=== PATIENT | female | born 1960 | race Caucasian/White ===

== ENCOUNTER 2021-07-01 17:29 | Inpatient (IN) | payer OTHER ==
[~2021-07-01] VITALS: Ht 165.1 cm; Wt 85.6 kg
[2021-07-01 18:53] LABS: BASOPHIL 1.1 % (0-2); EOSINOPHIL 0.1 % (0-5); HCT 52.7 % (37.0-47.0); HGB 17.6 g/dl (12.5-16.0); MCH 32.3 pg (25.0-31.0); MCHC 33.4 g/dL (32.0-36.0); MCV 96.7 fL (78.0-100.0); MONOCYTE 6.5 % (0-12); MPV 8.7 fL (6.0-9.5); NEUTROPHIL 67.9 % (41-80); NRBC 0; PLT 208 K/uL (150-400); RBC 5.45 M/uL (4.20-5.40); RDW 12.8 % (11.5-14.0); WBC 10.6 K/uL (4.0-10.5)
[2021-07-01 18:55] LABS: BILIRUBIN 1+ mg/dL (NEGATIVE); BLOOD 1+ Ery/uL (NEGATIVE); CLARITY CLEAR (CLEAR); COLOR YELLOW (YELLOW); GLUCOSE (U) 2+ mg/dL (NORMAL); LEUKOCYTES NEGATIVE Leu/uL (NEGATIVE); NITRITE NEGATIVE (NEGATIVE); PROTEIN 1+ mg/dL (NEGATIVE); SPECIFIC GRAVITY >=1.030 (1.001-1.030); UROBILINOGEN 0.2 mg/dL (0.2-1.0); pH 5.5 (5.0-9.0)
[2021-07-01 19:09] LABS: BACTERIA TRACE; YEAST PRESENT
[2021-07-01 19:10] LABS: AMORPHOUS URATES CRYSTALS TRACE; MUCOUS TRACE
[2021-07-01 19:17] LABS: ALBUMIN 4.1 g/dL (3.4-5.0); BILIRUBIN - TOTAL 0.5 mg/dL (0.2-1.0); BUN/CREAT RATIO (CALC) 23.5 RATIO; CREATININE 0.51 mg/dL (0.51-0.95); GLOBULIN (CALCULATION) 4.1 g/dL; MAGNESIUM 2.2 mg/dL (1.8-2.4); TOTAL PROTEIN 8.2 g/dL (6.4-8.2)
[2021-07-01 19:18] LABS: PRO-BNP 36 pg/mL (<125)
[2021-07-01 19:33] LABS: LACTIC ACID 2.5 mmol/L (0.4-1.9)
[2021-07-01 21:55] LABS: FT4 (FREE T4) 0.9 ng/dL (0.76-1.46)
[2021-07-02 02:46] LABS: BUN 15 mg/dL (7-18); CHLORIDE 106 mmol/L (98-107); GLUCOSE 383 mg/dL (74-106); POTASSIUM 3.7 mmol/L (3.5-5.1)
[2021-07-02 03:03] LABS: CO2 (BICARBONATE) < 5 mmol/L (21-32)
[2021-07-02 06:48] LABS: BASOPHIL 0.1 % (0-2); EOSINOPHIL 0 % (0-5); HCT 50.6 % (37.0-47.0); HGB 16.6 g/dl (12.5-16.0); LYMPHOCYTE 11.9 % (15-48); MCH 32.4 pg (25.0-31.0); MCHC 32.8 g/dL (32.0-36.0); MCV 98.6 fL (78.0-100.0); MONOCYTE 9.3 % (0-12); MPV 8.7 fL (6.0-9.5); NEUTROPHIL 74.3 % (41-80); NRBC 0; PLT 193 K/uL (150-400); RBC 5.13 M/uL (4.20-5.40); RDW 12.8 % (11.5-14.0); WBC 15.3 K/uL (4.0-10.5)
[2021-07-02 07:08] LABS: ALBUMIN 3.3 g/dL (3.4-5.0); BILIRUBIN - TOTAL 0.4 mg/dL (0.2-1.0); BUN/CREAT RATIO (CALC) 34.9 RATIO; CREATININE 0.43 mg/dL (0.51-0.95); GLOBULIN (CALCULATION) 4.8 g/dL; POTASSIUM 3.6 mmol/L (3.5-5.1); TOTAL PROTEIN 8.1 g/dL (6.4-8.2)
[2021-07-02 11:14] LABS: BUN/CREAT RATIO (CALC) 46.7 RATIO; CREATININE 0.15 mg/dL (0.51-0.95); POTASSIUM 3.9 mmol/L (3.5-5.1)
[2021-07-02 17:43] LABS: BUN/CREAT RATIO (CALC) 32.4 RATIO; CREATININE 0.34 mg/dL (0.51-0.95); POTASSIUM 2.9 mmol/L (3.5-5.1)
[2021-07-02 22:29] LABS: BUN/CREAT RATIO (CALC) 28.1 RATIO; CREATININE 0.32 mg/dL (0.51-0.95); POTASSIUM 3.7 mmol/L (3.5-5.1)
[2021-07-03 04:20] LABS: BASOPHIL 0.2 % (0-2); EOSINOPHIL 0.3 % (0-5); HCT 32.8 % (37.0-47.0); HGB 11.7 g/dl (12.5-16.0); LYMPHOCYTE 24.9 % (15-48); MCH 32.7 pg (25.0-31.0); MCHC 35.7 g/dL (32.0-36.0); MONOCYTE 7.2 % (0-12); MPV 8.6 fL (6.0-9.5); NEUTROPHIL 66.6 % (41-80); NRBC 0; PLT 125 K/uL (150-400); RBC 3.58 M/uL (4.20-5.40); RDW 12.8 % (11.5-14.0); WBC 6.4 K/uL (4.0-10.5)
[2021-07-03 04:21] LABS: MCV 91.6 fL (78.0-100.0)
[2021-07-03 04:39] LABS: BUN/CREAT RATIO (CALC) 22.6 RATIO; CREATININE 0.31 mg/dL (0.51-0.95); POTASSIUM 3.2 mmol/L (3.5-5.1)
[2021-07-03 10:59] LABS: BUN/CREAT RATIO (CALC) 17.2 RATIO; CREATININE 0.29 mg/dL (0.51-0.95); POTASSIUM 3.2 mmol/L (3.5-5.1)
[2021-07-03 19:57] LABS: CREATININE 0.29 mg/dL (0.51-0.95); POTASSIUM 3.2 mmol/L (3.5-5.1)
[2021-07-04 06:30] LABS: BUN/CREAT RATIO (CALC) 9.4 RATIO; CREATININE 0.32 mg/dL (0.51-0.95); POTASSIUM 3.8 mmol/L (3.5-5.1)
[2021-07-04 16:47] LABS: BUN/CREAT RATIO (CALC) 7.9 RATIO; CREATININE 0.38 mg/dL (0.51-0.95); POTASSIUM 4.2 mmol/L (3.5-5.1)
[2021-07-04 18:08] LABS: CHLAMYDIA TRACHOMATIS, NAA Negative (Negative); NEISSERIA GONORRHOEAE, NAA Negative (Negative)
[2021-07-05 04:26] LABS: BASOPHIL 0.8 % (0-2); EOSINOPHIL 2.4 % (0-5); HCT 36.9 % (37.0-47.0); HGB 12.8 g/dl (12.5-16.0); LYMPHOCYTE 41.5 % (15-48); MCH 32.5 pg (25.0-31.0); MCHC 34.7 g/dL (32.0-36.0); MCV 93.7 fL (78.0-100.0); MPV 8.9 fL (6.0-9.5); NEUTROPHIL 44.4 % (41-80); NRBC 0; PLT 160 K/uL (150-400); RBC 3.94 M/uL (4.20-5.40); RDW 13.2 % (11.5-14.0); WBC 5.3 K/uL (4.0-10.5)
[2021-07-05 04:52] LABS: BUN/CREAT RATIO (CALC) 8.3 RATIO; CREATININE 0.36 mg/dL (0.51-0.95)
[2021-07-06 06:13] LABS: BASOPHIL 0.8 % (0-2); EOSINOPHIL 2.9 % (0-5); HCT 36.3 % (37.0-47.0); HGB 12.5 g/dl (12.5-16.0); LYMPHOCYTE 45.2 % (15-48); MCH 32.7 pg (25.0-31.0); MCHC 34.4 g/dL (32.0-36.0); MONOCYTE 12.2 % (0-12); MPV 8.8 fL (6.0-9.5); NEUTROPHIL 36.8 % (41-80); NRBC 0; PLT 135 K/uL (150-400); RBC 3.82 M/uL (4.20-5.40); WBC 5.2 K/uL (4.0-10.5)
[2021-07-06 06:34] LABS: ALBUMIN 2.5 g/dL (3.4-5.0); BILIRUBIN - TOTAL 0.4 mg/dL (0.2-1.0); CREATININE 0.46 mg/dL (0.51-0.95); GLOBULIN (CALCULATION) 3.8 g/dL; TOTAL PROTEIN 6.3 g/dL (6.4-8.2)
[2021-07-06] MEDS ORDERED: METFORMIN HCL500 MG PO (07:57)
[2021-07-06] MEDS ORDERED: SEMGLEE100 UNIT/1 SC (07:57)
[2021-07-06] MEDS ORDERED: ZESTRIL5 MG PO (08:06)
[2021-07-06] MEDS ORDERED: FIORICET1 EACH PO (08:09)
[2021-07-06] MEDS ORDERED: ANTI-FUNGAL CR198 GM TOP (09:24)
[2021-07-06 09:33] LABS: BILIRUBIN NEGATIVE (NEGATIVE); BLOOD NEGATIVE Ery/uL (NEGATIVE); CLARITY CLEAR (CLEAR); COLOR YELLOW (YELLOW); GLUCOSE (U) 1+ mg/dL (NORMAL); LEUKOCYTES NEGATIVE Leu/uL (NEGATIVE); NITRITE NEGATIVE (NEGATIVE); PROTEIN NEGATIVE (NEGATIVE); SPECIFIC GRAVITY 1.015 (1.001-1.030); UROBILINOGEN 0.2 mg/dL (0.2-1.0)
== END 2021-07-06 11:24 | disposition home or self-care (01) | DRG 871 ==
LOC: FER 17:29 → FICU 21:34 → FTCU 21:34 → FICU 07-04 12:36 → FTCU 07-04 12:36
PROVIDERS: Emergency Medicine; Family Medicine; Nurse Practitioner; ADMIT Allergy & Immunology Allergy
PROC: 05HY33Z Insertion of Infusion Device into Upper Vein, Percutaneous Approach (ICD-10-PCS; principal; 2021-07-02)
DX: A41.9 Sepsis, unspecified organism (principal); E11.10 Type 2 diabetes mellitus with ketoacidosis without coma; E87.0 Hyperosmolality and hypernatremia; B37.3 Candidiasis of vulva and vagina; I10 Essential (primary) hypertension; Z20.822 Contact with and (suspected) exposure to COVID-19; E11.40 Type 2 diabetes mellitus with diabetic neuropathy, unspecified; Z83.3 Family history of diabetes mellitus; Z83.6 Family history of other diseases of the respiratory system; Z98.890 Other specified postprocedural states
CPT/HCPCS: 36415; 36600; 70450; 71045; 71275; 80048; 80053; 80061; 81001; 81003; 82009; 82728; 82803; 82962; 83036; 83605; 83615; 83735; 83880; 84145; 84439; 84443; 84484; 85025; 85379; 86140; 87040; 87076; 87088; 87491; 87591; 93005; 94010; 97162; 97166; 97530-GP; 97535; C1751; G0480; J0637; J0692; J1650; J1815; J2270; J2405; J3480; J7030; J7050; J7120; J7121; Q9967; U0002

== ENCOUNTER 2021-09-08 19:43 | Emergency (ER) | payer OTHER ==
[~2021-09-08 19:43] MED LIST: ANTI-FUNGAL CR198 GM TOP; FIORICET1 EACH PO; METFORMIN HCL500 MG PO; SEMGLEE100 UNIT/1 SC; ZESTRIL5 MG PO
[2021-09-08 20:58] LABS: BASOPHIL 0.6 % (0-2); EOSINOPHIL 3.3 % (0-5); HCT 40.3 % (37.0-47.0); LYMPHOCYTE 34.7 % (15-48); MCH 31.5 pg (25.0-31.0); MCHC 34.7 g/dL (32.0-36.0); MCV 90.8 fL (78.0-100.0); MONOCYTE 7.8 % (0-12); MPV 8.7 fL (6.0-9.5); NEUTROPHIL 53.2 % (41-80); NRBC 0; PLT 195 K/uL (150-400); RBC 4.44 M/uL (4.20-5.40); WBC 6.9 K/uL (4.0-10.5)
[2021-09-08 21:28] LABS: LACTIC ACID 1.9 mmol/L (0.4-1.9)
[2021-09-08 21:32] LABS: ALBUMIN 3.8 g/dL (3.4-5.0); BILIRUBIN - TOTAL 0.4 mg/dL (0.2-1.0); BUN/CREAT RATIO (CALC) 54.3 RATIO; CREATININE 0.35 mg/dL (0.51-0.95); GLOBULIN (CALCULATION) 3.4 g/dL; POTASSIUM 4.2 mmol/L (3.5-5.1); TOTAL PROTEIN 7.2 g/dL (6.4-8.2)
[2021-09-08 22:10] LABS: BILIRUBIN NEGATIVE (NEGATIVE); BLOOD 3+ Ery/uL (NEGATIVE); CLARITY CLEAR (CLEAR); COLOR YELLOW (YELLOW); GLUCOSE (U) 3+ mg/dL (NORMAL); LEUKOCYTES 1+ Leu/uL (NEGATIVE); NITRITE NEGATIVE (NEGATIVE); PROTEIN NEGATIVE (NEGATIVE); SPECIFIC GRAVITY 1.025 (1.001-1.030); UROBILINOGEN 0.2 mg/dL (0.2-1.0); pH 5.5 (5.0-9.0)
[2021-09-08 22:17] LABS: BACTERIA 3+
[2021-09-08] MEDS ORDERED: MACROBID100 MG PO (22:54)
== END 2021-09-08 23:20 | disposition home or self-care (01) ==
LOC: FER 19:43
PROVIDERS: Emergency Medicine; Nurse Practitioner Family
DX: N39.0 Urinary tract infection, site not specified (principal); I10 Essential (primary) hypertension; E11.9 Type 2 diabetes mellitus without complications; Z79.84 Long term (current) use of oral hypoglycemic drugs; Z79.899 Other long term (current) drug therapy
CPT/HCPCS: 36415; 80053; 81001; 83605; 85025; 87076; 87088; 87186; J2543; J7030